=== PATIENT | female | born 1945 | race Caucasian/White ===

== ENCOUNTER 2023-01-15 10:15 | Outpatient (RCR) | payer MEDICARE, BC, SELFPAY ==
--- NOTE | 2022-10-24 11:37 | PT.OPDNX ---
PT [place] [facility] Daily Note [facility] Daily Note Start: 10/23/21 07:10 Freq: Status: Active Protocol: Document 10/24/22 09:57 SONIA (Rec: 10/24/22 10:03 SONIA [id number]) E-signed By Theodora Pinto, PT PT OP Daily Progress Note Visit Information Note Type Daily Note,Recert/Progress Note Visit Number [id number] Insurance Information Recert Due Date 01/18/23 Insurance Name Medicare B Medical Diagnosis Lt Superior and Inferior Pubic Rami Fractures, coccyx shattered secondary to Fall on 02/15/21 Acute Avulsion of Lt Hamstring tendon Treating Diagnosis Balance Deficit and Impaired Gait Skills Functional Strength Deficit Poor posture Chronic Pain Referring MD Dr Gabriel Lala Subjective Subjective F/U from Pelvic Fracture went well. My Dr and surgeon stated my bones have healed well and I can cont with all of my exercises without restrictions . I am down to 6 mg of prednisone and I feel much better. Cont with HEP daily, along with getting my to his appts for cancer cares. I still try to do the ex for about 20 min, 3X/Day. Walk a lot during the day. Pain Comments moderate and cont as always Precautions Treatment Precautions/Contraindications Chronic postural deficit, LBP, Mendoza Hip pain, Mendoza knee pain, Arthritis, Heart Condition, Chronic Kidney Dx, Weight loss , Lt TKR 03/07/20. Osteopenia, Moderate Degenerative Arthritic changes mendoza hips, SIJ, Pubic symphysis. Chondrocalcinosis of Pubic Symphysis, mendoza SIJ and mendoza Femoral Heads. Advanced Degenerative Arthritis of complete Lumbar Spine with Intervertebral Disc Space Narrowing and Facet Arthropathy/6mm Anterolisthesis of L4 on L5 and 3mm anterolisthesis of L5 on S1 Weight Bearing Status Full Weight Bearing Objective Patient Instructed in Risks/Benefits Yes Therapeutic Exercise Therapeutic Exercise Minutes (minutes) 54 Therapeutic Exercise: To Restore We completed the following Functional Status tasks: -NuStep x 6 min, L3 -hip ABD plate 1 X 30 reps -finger wall climb facing wall , both arms at same time to encourage elongation of spine. Bird Dog X 8 reps with 4 sec HOLD time. -UBE X 4 min at light pace -Leg press - 75# x 30 reps -ankle sway near wall, EO/EC near a wall -forward leaning at table; hip EXT with GTB X 20 reps mendoza -shoulder ABD 2# X 15 reps -cc rowing plate 2.5 X 30 reps -hamstring curl plate 3.5 X 30 reps -cc shoulder EXT plate 2.5 X 30 reps -4step up X 20 reps mendoza -forward lunges alternating sides, holding ex bar. 10 reps mendoza Treatment Minutes Timed Code Treatment Minutes 54 Total Treatment Time 54 Billing Units Therapeutic Exercise Units 4 Assessment/Impression Assessment/Impression Client has lost more weight, but states she is under more stress with her going through [place] cares. Medications are fine, no changes since last visit. Performed above tasks without breaks, careful with foot placement and sit to standing. She cont to have a very difficult time standing erect, fatigues quickly with shoulder ex and standing tasks . Advised to use mirror at home for visual feedback on proper erect posture. When standing correctly, she states she feels like she is doing a back bend. We went over her home ex routine today, wrote down 10 ex for her to perform daily: balance, knee, hip, core/trunk, UB/shoulder. Standing, walking tolerance of about 30 min reported. She is doing all of the house cleaning, cooking, laundry and driving. She cont with PT visits as able, with getting her to his [place] appts. She cont to benefit from PT interventions. Plan of Care Physical Therapy Goals In 6-8 visits, Alysa will be able to: 1. Stand erect (per thoracic limitations) and complete light chores for up to 15 minutes without increased pain greater than 5/10. MET 2. Stand/walk for 15 min without pain greater than 5/10 75% of the time. MET 3. A/D flight of 13 steps with symmetric WB and reciprocal gait pattern. Partially MET, with fatigue still non-recip. In 12-16 visits, Alysa will be able to: 1. Lift/carry up to 10# a distance of 10 feet to resume cooking light meals and performing light cleaning tasks at her home. Not MET 2. Increased strength grossly to 4+/5 mendoza hips and feet to increase safety with home chores, reduced fall risk and improved quality of life with increased community ambulation . Not MET 3. IND in proper execution of entire HEP to cont on her own at [facility] once DC from PT. 4. Increased MILAN score from 21 to at least 35/56 to reduce fall risk. MET 5. Increased TUG from 22 to at max of 17 seconds to demonstrate improved ambulation and reduced fall risk. MET Daily Plan of Care Continue per POC Recertification Information Initial Certification Date 10/25/21 Recertification Start Date 10/24/22 Recertification Due Date 01/18/23 Reasons to Continue Skilled Therapy Client cont to exhibit FF posture, weakness at trunk and hips/knees. She ambulates with WW and has poor SLS/ balance. She remains a fall risk. Rehabilitation Potential Good Continued Plan of Care and Interventions Cont with gross full body strengthening for continued functional stength deficit and fall risk. Hope to keep her living safely within her own home with her as long as possible. She is compliant with the program, but has missed many sessions due to his recent DX of Cancer - she needs to bring him to appts and cancels ours. She has had many underlying health issues and surgeries (s/p Lt TKA, fall with pelvic fracture last year. Awaiting approval to schedule Rt TKR). Provider Signature Shows Agreement With POC & Medical Necessity Physician Comment/Change Comment or Changes Physician NPI Number #
== END 2023-05-15 23:59 | disposition home or self-care (01) ==
PROVIDERS: PCP Student in an Organized Health Care Education/Training Program; Visit Provider Student in an Organized Health Care Education/Training Program
DX: M17.0 Bilateral primary osteoarthritis of knee (principal); M25.561 Pain in right knee; R26.9 Unspecified abnormalities of gait and mobility; Z98.1 Arthrodesis status; R53.81 Other malaise; G89.29 Other chronic pain; R29.898 Other symptoms and signs involving the musculoskeletal system; R29.3 Abnormal posture; S76.392A Other specified injury of muscle, fascia and tendon of the posterior muscle group at thigh level, left thigh, initial encounter
CPT/HCPCS: 97110; 97112; 97116; 97162

== ENCOUNTER 2024-10-21 10:00 | Outpatient (RCR) | payer MEDICARE, BC, SELFPAY | END 2024-10-22 17:00 | disposition home or self-care (01) | PROVIDERS: Visit Provider Internal Medicine | DX: M17.0 Bilateral primary osteoarthritis of knee (principal); Z51.89 Encounter for other specified aftercare | CPT/HCPCS: 97110; 97112; 97140; 97162 ==